=== PATIENT | male | born 1950 | race Caucasian/White ===

== ENCOUNTER 2017-10-23 05:14 | Day surgery (SDC) | payer OTHER ==
[2017-10-22 15:17] VITALS: BMI 21.9
--- NOTE | 2017-10-23 13:00 | HP ---
History & Physical Update - History History: No Change - Physical Physical: No Change - Assessment Assessment: No Change - Plan Plan: No Change
--- NOTE | 2017-10-23 13:02 | OP ---
Operative Note - Note: Pre-Operative Diagnosis: R ureteral calculus Operation: R ureteroscopic laser lithotripsy and JJ stent insertion Findings: R ureteral calculus Post-Operative Diagnosis: Same as Pre-op Surgeon: Ganga Bai Anesthesiologist/AUDITING MANAGER: Nelly Hummel Anesthesia: General Drains & Tubes with Location: 6 fr 24 cm R JJ stent Operative Report Dictated: Yes
[2017-10-23] MEDS ORDERED: ceFAZolin SODIUM 1 GM VIAL ONE (14:23)
[2017-10-23] MEDS ORDERED: MIDAZOLAM HCL 2 MG/2 ML SINGLE DOSE VIAL ONE (14:23)
[2017-10-23] MEDS ORDERED: PROPOFOL 20 ML ONE (14:23)
[2017-10-23] MEDS ORDERED: ONDANSETRON 4 MG/2 ML VIAL IVPUSH PRN (14:29)
[2017-10-23] MEDS ORDERED: oxyCODONE HCL 5 MG TABLET PO PRN (14:29)
[2017-10-23] MEDS ORDERED: LACTATED RINGERS SOLUTION 1,000 ML IV SCH (14:30)
[2017-10-23] MEDS ORDERED: ceFAZolin SODIUM 1 GM VIAL IVPB ONE (14:36)
[2017-10-23] MEDS ORDERED: DEXAMETHASONE SOD PHOSPHATE 4 MG/1 ML VIAL ONE (15:07)
--- NOTE | 2017-10-23 16:06 | OP ---
DATE OF OPERATION: 10/23/2017 PREOPERATIVE DIAGNOSIS: Right ureteral calculus. POSTOPERATIVE DIAGNOSIS: Right ureteral calculus. PROCEDURE: Cystoscopy, right ureteroscopy, stone basketing, stent insertion. SURGEON: Ganga Page MD DRIVER HELPER: None. ANESTHESIA: General via laryngeal mask. ANESTHESIOLOGIST: Nelly Hummel MD SPECIMENS: None. CULTURES: None. DRAINS: A 6-Macedonian, 24-cm, right double-J stent. ESTIMATED BLOOD LOSS: Negligible. COMPLICATIONS: None. DESCRIPTION OF PROCEDURE: Patient was brought in the operating room, placed on the operative table in supine position. After the administration of general anesthesia via laryngeal mask, intravenous antibiotics were administered, and sequential compression devices were placed. Patient was placed in dorsal lithotomy position, and genitals and perineum were prepped and draped in the usual sterile manner. A 22-Macedonian cystoscope was inserted into the bladder under direct vision. The anterior urethra was normal. The prostatic urethra was unremarkable. The bladder was entered and thoroughly inspected. There were no foreign bodies, tumors, stones, or inflammation. Both ureteral orifices were in their usual location with clear efflux bilaterally. The right ureteral orifice was cannulated with a 0.038 guidewire which was advanced to the level of the right renal pelvis under fluoroscopic and direct visual guidance. Bladder was emptied. Cystoscope removed. Dual-lumen catheter was inserted. Retrograde pyelograms done, demonstrated filling defect in the proximal ureter. Second guidewire was placed. Now, the dual-lumen catheter was removed, and a flexible ureteroscope was inserted over the guidewire in a monorail fashion. Now, the guidewire was removed, and pyeloscopy was done. The stone had been pushed from the proximal ureter into the renal pelvis, where it was then basketed and removed. There were no additional stones. Retrograde pyelogram was done, demonstrated no evidence of extravasation and no hydronephrosis, no filling defects. The guidewire was coiled, left coiled in the renal pelvis. The ureteroscope and the stone were removed. The stone was dropped and could not be found to send to Pathology as specimen. The cystoscope was now backloaded, and a 6-Macedonian, 24-cm, right double-J stent was inserted over the guidewire under direct visual and fluoroscopic guidance, leaving 1 coil in the renal pelvis and 1 coil in the bladder. The bladder was emptied, instruments removed. The stent was secured to the penis with its suture and a Tegaderm. He tolerated the procedure well, transferred to recovery room in stable condition. He will be followed in the office on Friday for stent removal. GANGA PAGE M.D. [id number]
[2017-10-23 17:59] VITALS: TEMP 97.6
[2017-10-23 18:15] VITALS: BP 144/85; PULSE 62
== END 2017-10-23 18:05 | disposition home or self-care (01) ==
LOC: JASU-SURG 05:14
PROVIDERS: ATTEND Urology
PROC: 0TC68ZZ Extirpation of Matter from Right Ureter, Via Natural or Artificial Opening Endoscopic (ICD-10-PCS; principal; 2017-10-23 14:00)
PROC: 0T768DZ Dilation of Right Ureter with Intraluminal Device, Via Natural or Artificial Opening Endoscopic (ICD-10-PCS; 2017-10-23 14:00)
DX: N20.1 Calculus of ureter (principal)
CPT/HCPCS: 76000-TC-FY; 94760